=== PATIENT | male | born 1980 | race African-American/Black ===

== ENCOUNTER 2021-08-31 00:11 | Emergency (ER) | payer MEDICAID, OTHER ==
[~2021-08-31] VITALS: Ht 180.3 cm; Wt 65.8 kg
[2021-08-31 00:11] VITALS: BP 130/90
[2021-09-01] MEDS ORDERED: IBUP800T26 PO ×2 (03:52→04:01)
[2021-09-01] MEDS ORDERED: HYDR25TA4 PO ×2 (03:52→04:01)
== END 2021-08-31 02:50 | disposition left against medical advice (07) ==
LOC: ER 00:11
DX: M79.671 Pain in right foot (principal); Z53.21 Procedure and treatment not carried out due to patient leaving prior to being seen by health care provider

== ENCOUNTER 2021-09-01 01:14 | Emergency (ER) | payer OTHER ==
[~2021-09-01] VITALS: Ht 182.9 cm; Wt 72.6 kg
[2021-09-01 02:19] VITALS: BP 147/87
[2021-09-01] MEDS ORDERED: HYDR25TA4 PO ×2 (03:52→04:01)
[2021-09-01] MEDS ORDERED: IBUP800T26 PO ×2 (03:52→04:01)
== END 2021-09-01 04:08 | disposition home or self-care (01) ==
LOC: ER 01:14 → EDBD 01:14 → ER 04:08
DX: L84 Corns and callosities (principal); F41.9 Anxiety disorder, unspecified; E11.9 Type 2 diabetes mellitus without complications
CPT/HCPCS: 93005